=== PATIENT | male | born 1985 | race African-American/Black ===

== ENCOUNTER 2023-05-21 09:32 | Emergency (ER) | payer MEDICAID ==
[~2023-05-21] VITALS: Ht 177.8 cm; Wt 82.0 kg
[2023-05-21 09:36] VITALS: O2SAT 97
[2023-05-21] MEDS ORDERED: DIPHENHYDRAMINE 50MG/ML VIAL IM STA (10:04)
[2023-05-21] MEDS ORDERED: HALOPERIDOL LACTATE 5MG/ML VIAL IM STA (10:04)
[2023-05-21] MEDS ORDERED: LORAZEPAM 2MG/ML CPJ IM STA (10:04)
[2023-05-21 10:39] LABS: HEMATOCRIT. 41.3 % (42.0-52.0); MEAN CORPUSCULAR HEMOGLOBIN 30.6 pg (28.0-32.0); MEAN CORPUSCULAR HGB CONC 33.8 g/dL (31.0-37.0); MEAN CORPUSCULAR VOLUME 90.7 fL (80.0-94.0); PLATELET 373 x1000/uL (130-400); RED BLOOD CELL COUNT 4.56 mill/uL (4.7-6.1); RED CELL DISTRIBUTION WIDTH 13.8 % (11.6-14.6)
[2023-05-21 10:40] LABS: DIFFERENTIAL COMMENT 1
[2023-05-21 10:51] LABS: CHLORIDE 110 mEq/L (98-107); INDEX HEMOLYSI 1 (1-3); INDEX ICTERIC 1 (1-4); INDEX LIPEMIC 1 (1-3); POTASSIUM 3.2 mEq/L (3.5-5.1); SODIUM 141 mEq/L (136-145)
[2023-05-21 10:57] LABS: ACETAMINOPHEN <2 ug/mL ug/mL (10-30); ALANINE AMINOTRANSFERASE 42 IU/L (13-61); ALBUMIN 3.8 g/dL (3.4-5.0); ASPARTATE AMINOTRANSFERASE 58 IU/L (15-37); BILIRUBIN TOTAL 0.4 mg/dL (0.1-1.0); CALCIUM 9.3 mg/dL (8.5-10.1); CARBON DIOXIDE 26 mEq/L (21-32); CREATININE 1.9 mg/dL (0.6-1.3); ETHANOL BLOOD < 10 mg/dL (-10); GLUCOSE 107 mg/dL (70-105); PROTEIN TOTAL 7.9 g/dL (6.0-8.3); UREA NITROGEN BLOOD 15 mg/dL (7-21)
[2023-05-21 11:21] LABS: PLATELET ESTIMATE NORMAL
[2023-05-21] MEDS ORDERED: POTASSIUM CHLORIDE 20MEQ TABLET SR PO NR (11:30)
[2023-05-21] MEDS ORDERED: DIPHENHYDRAMINE 50MG/ML VIAL IM NR (12:45)
[2023-05-21] MEDS ORDERED: LORAZEPAM 2MG/ML CPJ IM NR (12:45)
[2023-05-21] MEDS ORDERED: HALOPERIDOL LACTATE 5MG/ML VIAL IM NR (12:45)
[2023-05-21 14:59] VITALS: BP 120/69; PULSE 78; RESP 18; TEMP 98.1
== END 2023-05-21 15:27 | disposition home or self-care (01) ==
LOC: ER 09:32 → EDBD 09:32 → ER 15:27
DX: R41.82 Altered mental status, unspecified (principal); D72.829 Elevated white blood cell count, unspecified; E87.6 Hypokalemia
CPT/HCPCS: 36415; 80053; 80307; 80320; 80329; 85025; 93005; 99285; J1200; J2060; G0480